=== PATIENT | female | born 1990 | race Caucasian/White ===

== ENCOUNTER 2019-01-17 00:19 | Emergency (ER) | payer OTHER ==
[~2019-01-17] VITALS: Ht 165.1 cm; Wt 48.5 kg
[2019-01-17] MEDS ORDERED: XARELTO20 MG PO (00:42)
[2019-01-17] MEDS ORDERED: LIDODERM1 EACH TOP (01:20)
[2019-01-17 01:24] LABS: AMP/METHAMP POSITIVE (Negative); BARBITURATES Negative (Negative); BENZODIAZEPINES Negative (Negative); COCAINE Negative (Negative); METHADONE Negative (Negative); OPIATES Negative (Negative); PCP Negative (Negative)
[2019-01-17 01:46] VITALS: BP 105/67
== END 2019-01-17 01:52 | disposition home or self-care (01) ==
LOC: ER 00:19 → EDBD 00:19 → ER 01:52
PROVIDERS: Student in an Organized Health Care Education/Training Program
DX: M25.512 Pain in left shoulder (principal); M79.89 Other specified soft tissue disorders; F17.210 Nicotine dependence, cigarettes, uncomplicated; Z91.040 Latex allergy status; Z88.8 Allergy status to other drugs, medicaments and biological substances; Z79.899 Other long term (current) drug therapy